=== PATIENT | female | born 1995 | race Hispanic/Latino ===

== ENCOUNTER 2019-03-20 19:35 | Emergency (ER) | payer SELFPAY ==
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
== END 2019-03-20 21:20 | disposition home or self-care (01) ==
LOC: ERS 19:35
DX: S62.647A Nondisplaced fracture of proximal phalanx of left little finger, initial encounter for closed fracture (principal); W22.8XXA Striking against or struck by other objects, initial encounter
CPT/HCPCS: 29125

== ENCOUNTER 2020-08-16 03:02 | Emergency (ER) | payer SELFPAY ==
[2020-08-16] MEDS ORDERED: Boostrix 0.5 ML (Tdap) VIAL ONE (03:53)
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
== END 2020-08-16 04:26 | disposition home or self-care (01) ==
LOC: ERS 03:02
DX: S06.9X9A Unspecified intracranial injury with loss of consciousness of unspecified duration, initial encounter (principal); S05.12XA Contusion of eyeball and orbital tissues, left eye, initial encounter; F17.290 Nicotine dependence, other tobacco product, uncomplicated; W50.0XXA Accidental hit or strike by another person, initial encounter
CPT/HCPCS: 70450; 70486; 72125; 90471; 90715

== ENCOUNTER 2021-06-21 04:57 | Emergency (ER) | payer SELFPAY | END 2021-06-21 05:50 | LOC: ERS 04:57 | DX: Z02.89 Encounter for other administrative examinations (principal) | CPT/HCPCS: 99283 ==

== ENCOUNTER 2022-12-23 06:36 | Emergency (ER) | payer OTHER, SELFPAY ==
[2022-12-23 07:22] LABS: #Eosinphils 0.2 thou/uL (0.0-0.7); #Lymphocytes 2.3 thou/uL (1.20-3.40); #Monocytes 0.7 thou/uL (0.11-0.59); #Neutrophils 6.5 thou/uL (1.40-6.50); %Basophils 0.1 % (0.0-1.0); %Lymphocytes 23.4 % (21.0-51.0); %Monocytes 7.5 % (0.0-10.0); Mean Corpuscular HGB CONC 34.5 g/dL (32.0-36.0); Mean Corpuscular Hemoglobin 33.2 pg (27.0-31.0); Mean Corpuscular Volume 96.2 fl (78.0-98.0); Mean Platelet Volume 8.4 fL (7.4-10.4); Platelet Count 384 10x3/uL (130-400); RBC Distribution Width 12.1 % (11.5-14.5); Red Blood Cell (RBC) Count 3.61 mill/uL (4.20-5.40); White Blood Cell (WBC) Count 9.7 10x3/uL (4.8-10.8)
[2022-12-23 07:36] LABS: ALT (SGPT) 7 U/L (8-55); AST (SGOT) 10 U/L (5-34); Albumin 3.2 g/dL (3.5-5.0); Alkaline Phosphatase 85 U/L (40-110); Anion Gap 12 mmol/L (10-20); BUN (Urea Nitrogen) 6 mg/dL (7.0-18.7); Bilirubin, Total 0.2 mg/dL (0.2-1.2); Calc. Creatinine Clearance 0 mL/min (70-130); Calcium 8.9 mg/dL (7.8-10.44); Carbon Dioxide 21 mmol/L (22-29); Chloride 107 mmol/L (98-107); Estimated GFR 125; Globulin 3.3 g/dL (2.4-3.5); Glucose 118 mg/dL (70-105); Potassium 4.1 mmol/L (3.5-5.1); Protein, Total 6.5 g/dL (6.0-8.3); Sodium 136 mmol/L (136-145)
== END 2022-12-23 08:37 | disposition home or self-care (01) ==
LOC: ERS 06:36
DX: O99.612 Diseases of the digestive system complicating pregnancy, second trimester (principal); Z3A.25 25 weeks gestation of pregnancy
CPT/HCPCS: 36415; 76815; 80053; 84702; 85025

== ENCOUNTER 2023-03-29 00:42 | Emergency (ER) | payer OTHER | END 2023-03-29 02:45 | disposition short-term general hospital (02) | LOC: ERS 00:42 | DX: O26.893 Other specified pregnancy related conditions, third trimester (principal); Z3A.39 39 weeks gestation of pregnancy | CPT/HCPCS: 99284 ==

== ENCOUNTER 2024-05-06 16:14 | Emergency (ER) | payer OTHER | END 2024-05-06 17:09 | disposition home or self-care (01) | LOC: ERS 16:14 | DX: H66.91 Otitis media, unspecified, right ear (principal); H73.91 Unspecified disorder of tympanic membrane, right ear | CPT/HCPCS: 99282 ==

== ENCOUNTER 2024-09-14 02:34 | Emergency (ER) | payer OTHER ==
[2024-09-14] MEDS ORDERED: Boostrix 0.5 ML (Tdap) VIAL (>/=7 yrs of age) ONE (02:49)
== END 2024-09-14 03:42 | disposition home or self-care (01) ==
LOC: ERS 02:34
DX: S01.511A Laceration without foreign body of lip, initial encounter (principal); Z23 Encounter for immunization; V89.2XXA Person injured in unspecified motor-vehicle accident, traffic, initial encounter; Y93.89 Activity, other specified
CPT/HCPCS: 90471; 90715; G0390

== ENCOUNTER 2025-07-15 09:02 | Emergency (ER) | payer OTHER ==
[2025-07-15] MEDS ORDERED: Ketorolac Tromethamine 30 MG (1 mL) VIAL ONE (09:43)
[2025-07-15] MEDS ORDERED: HYDROcodone/Acetaminophen 10/325 mg Tablet ONE (09:43)
== END 2025-07-15 09:50 | disposition home or self-care (01) ==
LOC: ERS 09:02
DX: S46.912A Strain of unspecified muscle, fascia and tendon at shoulder and upper arm level, left arm, initial encounter (principal); X58.XXXA Exposure to other specified factors, initial encounter; Y99.0 Civilian activity done for income or pay
CPT/HCPCS: 96372; 99283; J1885